=== PATIENT | male | born 1960 | race Caucasian/White ===

== ENCOUNTER → 2023-12-27 13:02 | Outpatient (REF) | payer OTHER, SELFPAY | LOC: HWRAD 13:02 | PROVIDERS: ATTENDING PHYSICIAN Family Medicine | DX: Z87.891 Personal history of nicotine dependence (principal); Z72.0 Tobacco use; Z12.2 Encounter for screening for malignant neoplasm of respiratory organs; M25.512 Pain in left shoulder; M25.511 Pain in right shoulder | CPT/HCPCS: 71271; 73030 ==

== ENCOUNTER → 2023-12-30 12:55 | Outpatient (REF) | payer OTHER, SELFPAY | LOC: MRI 3T 12:55 | PROVIDERS: ATTENDING PHYSICIAN Physician Assistant; FAMILY PHYSICIAN Family Medicine | DX: M54.16 Radiculopathy, lumbar region (principal); Z98.890 Other specified postprocedural states; M54.41 Lumbago with sciatica, right side; M54.42 Lumbago with sciatica, left side; G89.29 Other chronic pain | CPT/HCPCS: 72148 ==

== ENCOUNTER → 2024-05-23 09:56 | Outpatient (REF) | payer OTHER, SELFPAY | LOC: MRI 3T 09:56 | PROVIDERS: ATTENDING PHYSICIAN Family Medicine | DX: M25.511 Pain in right shoulder (principal); M25.512 Pain in left shoulder | CPT/HCPCS: 73221 ==